=== PATIENT | female | born 1985 | race Caucasian/White ===

== ENCOUNTER 2019-09-29 03:20 | Emergency (ER) | payer BC ==
[~2019-09-29] VITALS: Ht 165.1 cm; Wt 90.7 kg
[~2019-09-29 03:20] MED LIST: FORTAMET500 MG PO; LEVOTHYROXINE50 MCG PO; LITHIUM CARBON450 MG PO; MULTI VITAMIN1 EACH PO; RISPERDAL2 MG PO
[2019-09-29] MEDS ORDERED: VRAYLAR3 MG PO (03:44)
[2019-09-29] MEDS ORDERED: VITAMIN D33000 UNIT PO (03:45)
[2019-09-29] MEDS ORDERED: ABILIFY5 MG PO (03:45)
== END 2019-09-29 04:07 | disposition home or self-care (01) ==
LOC: ED 03:20
DX: R50.9 Fever, unspecified (principal)

== ENCOUNTER 2021-01-31 03:47 | Emergency (ER) | payer BC ==
[~2021-01-31] VITALS: Ht 165.1 cm; Wt 90.7 kg
[~2021-01-31 03:47] MED LIST changes: +ABILIFY5 MG PO; +VITAMIN D33000 UNIT PO; +VRAYLAR3 MG PO
--- OUTSIDE RECORDS SUMMARY | 2021-01-31 03:50 | XMS ---
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 ETae VISIT COUNT (12 MO.) 1 BRIAN Coley TOTAL 1 NOTE: Visits indicate total known visits. ED/UCC VISIT TRACKING (12 MO.) 01/31/2021 03:48 BRIAN Ann [place] TYPE: Emergency COMPLAINT: - INSOMNIA INPATIENT VISIT TRACKING (12 MO.) No inpatient visits to display in this time frame [email or web address]
[2021-01-31] MEDS ORDERED: TRAZODONE HCL50 MG PO (04:26)
[2021-01-31] MEDS ORDERED: OLANZAPINE10 MG PO (04:26)
[2021-01-31] MEDS ORDERED: ZIPRASIDONE HCL60 MG PO (04:27)
[2021-01-31] MEDS ORDERED: LEVOTHYROXINE112 MC1 PO (04:27)
== END 2021-01-31 07:22 | disposition home or self-care (01) ==
LOC: ED 03:47
DX: R44.0 Auditory hallucinations (principal); F31.9 Bipolar disorder, unspecified; Z91.018 Allergy to other foods; Z79.899 Other long term (current) drug therapy
CPT/HCPCS: 80053; 81001; 84443; 84703; 85025; 99285; G0480